=== PATIENT | male | born 1965 | race Caucasian/White ===

== ENCOUNTER 2018-08-22 15:42 | Emergency (ER) | payer BC ==
--- NOTE | 2018-08-22 16:54 | EDM.PDOC ---
<Jessica Fisher - Last Filed: 08/22/18 16:45> ED HPI GENERAL MEDICAL PROBLEM - General Chief Complaint: Flank Pain Stated Complaint: KIDNEY STONE Time Seen by Provider: 08/22/18 16:20 Source of Information: Reports: Patient History Limitations: Reports: No Limitations - History of Present Illness INITIAL COMMENTS - FREE TEXT/NARRATIVE: Patient is a pleasant 53 year old male presents to the ED with concerns of having a kidney stone. He reports at about 3am this morning he awoke with sharp , colicky pain in the right upper quadrant. He states he took a Oxycdone tablet he had from previous kidney stone episodes. At around 9 this morning the pain eased up and he thought he had passed the stone. He states he also took a Tamulosin capsule that he had leftover from prior episodes. It was after the Tamulosin dose that the pain had started to come back. He states he has had two bouts of the sharp, colicky pain in the last few hours. He is worried that the stone may not have passed and does not want to wait to find out. Reports being nauseous and feeling warm earlier today, however denies it at this time. He also denies any recent chills or vomiting. Patient states he has had about 10 bouts of kidney stones in the past, with the last being two years ago. At that time the stone was so large he could not pass it on his own, so he had a stent placed and a lithotripsy procedure completed. Treatments GUITAR TEACHER: Reports: Other (see below) Other Treatments GUITAR TEACHER: oxycodone at 0300 and 0730; tamsolusin Right Flank Pain Score (Numeric/FACES): 2 - Related Data Allergies Allergy/AdvReac Type Severity Reaction Status Date / Time No Known Allergies Allergy Verified 08/22/18 16:25 Home Meds: Home Meds Tamsulosin [Flomax] 0.4 mg PO ASDIRECTED 08/22/18 [History] oxyCODONE HCl/Acetaminophen [Oxycodone-Acetaminophen 5-325] 1 tab PO ASDIRECTED 08/22/18 [History] ED ROS GENERAL - Review of Systems Review Of Systems: See Below Constitutional: Reports: No Symptoms, Fever. Denies: Chills Respiratory: Reports: No Symptoms. Denies: Shortness of Breath Cardiovascular: Reports: No Symptoms. Denies: Chest Pain GI/Abdominal: Reports: Nausea. Denies: Abdominal Pain : Reports: Flank Pain (right). Denies: Dysuria, Frequency, Hematuria, Urgency , Urinary Retention Skin: Reports: No Symptoms Neurological: Reports: No Symptoms Psychiatric: Reports: No Symptoms ED EXAM, RENAL/ - Physical Exam Exam: See Below Exam Limited By: No Limitations General Appearance: Alert, No Apparent Distress Respiratory/Chest: No Respiratory Distress, Lungs Clear, Normal Breath Sounds Cardiovascular: Regular Rate, Rhythm, No Gallop, No Murmur, No Rub GI/Abdominal: Normal Bowel Sounds, Soft, No Organomegaly, No Distention, Tender (Right flank) Back Exam: Normal Inspection, Full Range of Motion, CVA Tenderness (R). No: CVA Tenderness (L) Neurological: Alert, Oriented, Normal Cognition, No Motor/Sensory Deficits Psychiatric: Normal Affect, Normal Mood Skin Exam: Warm, Dry, Intact, Normal Color, No Rash Course - Vital Signs Last Recorded V/S: Last Vital Signs Temp 97.7 F 08/22/18 16:29 Pulse 73 08/22/18 16:29 Resp 20 08/22/18 16:29 BP 126/91 H 08/22/18 16:29 Pulse Ox 96 08/22/18 16:29 - Orders/Labs/Meds Orders: Active Orders 24 hr Category Date Time Status Strain Urine [RC] ASDIRECTED Care 08/22/18 16:44 Ordered UA W/MICROSCOPIC [URIN] Stat Lab 08/22/18 16:40 Ordered Labs: Laboratory Tests 08/22/18 Range/Units 17:09 Urine Color Yellow (Yellow) Urine Appearance Clear (Clear) Urine pH 5.5 (5.0-8.0) Ur Specific [place] > or = 1.030 (1.005-1.030) Urine Protein Negative (Negative) Urine Glucose (UA) Negative (Negative) Urine Ketones Negative (Negative) Urine Occult Blood 2+ H (Negative) Urine Nitrite Negative (Negative) Urine Bilirubin Negative (Negative) Urine Urobilinogen 0.2 (0.2-1.0) Ur Leukocyte Esterase Negative (Negative) Departure - Departure Disposition: Home, Self-Care 01 Clinical Impression: Kidney stone on right side - Discharge Information Instructions: Kidney Stones, [id number], Low-Purine Eating Plan Referrals: PCP,Not In Area [Primary Care Provider] - Forms: ED Department Discharge Additional Instructions: You have been evaluated in the ED for a possible kidney stone. You did have a CT, and it did demonstrate a 4.2mm Kidney stone in the mid right ureter. Please strain your urine every time he go to the bathroom to make sure that the kidney stone passes. Recommend increase oral intake of fluids to help flush the kidney stone. You may take 600 mg ibuprofen every 6 hours or 1-2 tablets of naproxen every 12 hours as needed for pain relief, you may take one half to one full tablet of the oxycodone prescription that you have already been prescribed for pain not relieved by the ibuprofen or naproxen alone. Recommend that you follow up with your primary care provider on Sunday if symptoms are now much better, or you have not passed the stone. Please use return to the ED if your symptoms should change or worsen. - My Orders Last 24 Hours: My Active Orders 08/22/18 16:40 UA W/MICROSCOPIC [URIN] Stat 08/22/18 16:44 Strain Urine [RC] ASDIRECTED - Assessment/Plan Last 24 Hours: My Active Orders 08/22/18 16:40 UA W/MICROSCOPIC [URIN] Stat 08/22/18 16:44 Strain Urine [RC] ASDIRECTED <Ania Oconnell - Last Filed: 08/22/18 17:41> ED HPI GENERAL MEDICAL PROBLEM - History of Present Illness INITIAL COMMENTS - FREE TEXT/NARRATIVE: I have read and reviewed the student's HPI and examined the patient and agree with Bernadette Fisher NP student. Course - Orders/Labs/Meds Labs: Laboratory Tests 08/22/18 Range/Units 17:09 Urine Color Yellow (Yellow) Urine Appearance Clear (Clear) Urine pH 5.5 (5.0-8.0) Ur Specific [place] > or = 1.030 (1.005-1.030) Urine Protein Negative (Negative) Urine Glucose (UA) Negative (Negative) Urine Ketones Negative (Negative) Urine Occult Blood 2+ H (Negative) Urine Nitrite Negative (Negative) Urine Bilirubin Negative (Negative) Urine Urobilinogen 0.2 (0.2-1.0) Ur Leukocyte Esterase Negative (Negative) - Re-Assessments/Exams Free Text/Narrative Re-Assessment/Exam: 08/22/18 17:00 Patient presents to the ED for a possible kidney stone. His history and exam is suspicious for kidney stone in nature. Have ordered a UA, and abdominal pelvis CT without contrast for further evaluation. He notes this pain is manageable at this time, nor is he nauseated. He declined any medications. It is possible that he may have passed the stone already, or has some smaller ones. 08/22/18 17:[address] is done, and demonstrates a 4.2 mm obstructing stone within the mid right ureter causing mild hydronephrosis. The patient does have some leftover oxycodone tablets for pain, I will see how many he has left and likely give him a few more, he has been given a urine strainer to strain for the stone , he will need to follow up with his primary care provider on Sunday if symptoms are not much better. Departure - Departure Time of Disposition: 17:36 Condition: Fair - Discharge Information *PRESCRIPTION DRUG MONITORING PROGRAM REVIEWED*: No *COPY OF PRESCRIPTION DRUG MONITORING REPORT IN PATIENT DOMINGO: No
--- NOTE | 2018-08-22 17:27 | CT ---
CT abdomen and pelvis Technique: Multiple axial sections were obtained from above the dome of the diaphragm inferiorly through the pubic symphysis. Intravenous and oral contrast was not utilized. Study has been performed as a ureteral stone protocol. Findings: Right-sided hydronephrosis is seen. Right ureter is dilated. This dilatation is caused by a 4.2 mm obstructing stone located within the mid right ureter occurring at the level of the upper iliac crest. No additional ureteral calculi are seen. Kidneys show no abnormal calcifications. Small portion of the visualized lung bases show nothing acute. Noncontrast appearance of the liver shows no discrete abnormality. Gallbladder contains no calcified gallstones. Spleen shows no focal parenchymal abnormality. Adrenal glands show no nodule. Pancreas is within normal limits. Aorta shows no aneurysm. No retroperitoneal adenopathy or mesenteric abnormalities are seen. Appendix is seen which is normal in size. No pelvic mass or adenopathy is seen. No free fluid or inflammatory change is seen. Minimal sigmoid diverticuli are seen without evidence of diverticulitis. No free fluid is seen. Bone window settings were reviewed which shows slight degenerative change which is scattered throughout the spine. Impression: 1. 4.2 mm obstructing stone within the mid right ureter causing proximal hydronephrosis. 2. No other acute abnormality is appreciated on noncontrast CT study of the abdomen and pelvis. Diagnostic code #3
== END 2018-08-22 17:59 | disposition home or self-care (01) ==
LOC: JD.ED 15:42
DX: N13.2 Hydronephrosis with renal and ureteral calculous obstruction (principal)
CPT/HCPCS: 74176; 74176-26; 81001; 99282; 99284-25